=== PATIENT | female | born 1950 | race Caucasian/White ===

== ENCOUNTER → 2016-06-22 | Outpatient (CLI) | payer OTHER ==
[~2016-06-22] MED LIST: ADAL40KI SQ; AMLO5TAB2 GT; ASP325TEC PO; ASPI-892 PO; ATOR40TA70 PO; ATOR80TA PO; CANA300T PO; CARV12.5 GT; CETI10TA17 PO; CHOL2000 PO; DICL75TA2; DIPH25TA82 PO; EZET10TA23 PO; FURO20TA4 PO; GMFB600T PO; LISI1TAB PO; LISI40TA PO; LSNP20T; MAGN250T7 PO; MELO-195 PO; METF-380 PO; METF500T61 PO; METH10TA40 PO; MULT-608 PO; NEBI2.5T5; NF-LOVAZAC PO; OMEG-11 PO; OMEP20CA6 PO; PNT40TEC PO; POTA10TA36; PRAS10TA6 PO; SENN1TAB66 PO; ZLP10T PO; ZOLP5TAB6 PO; ZOLP6.252; iron PO
--- OUTSIDE RECORDS SUMMARY | 2016-06-22 11:46 | XMS REPORT | Continuity of Care Document ---
Author Author [facility] Organization [facility] Address Unknown Phone Unavailable Care Team Providers Care Power Station Operator Name Role Phone LEANNE BAUTISTA DO PCP Insurance Providers Payer Name Policy Number Subscriber Name Relationship [employer] [id number] Jolene Gutierrez 20 Self / Same As Patient Advance Directives Directive Response Recorded Date/Time Advance Directives No 11/01/14 9:50am Health Care Power of Patent Prosecution Attorney No 11/01/14 9:50am Organ Donor Yes 11/01/14 9:50am Resuscitation Status Full Code 11/01/14 9:50am Problems No known problems or medical conditions. Medications Medication Dose Route Sig Days/Qty Instructions Order Date Discontinued Date Status Zolpidem Tartrate 10/12/08 08/04/10 Discontinued Aspirin 81 Mg PO DAILY 10/12/08 08/05/10 Discontinued Diphenhydramine HCl (Benadryl) 50 Mg PO TWICE A DAY 10/12/08 Discontinued Furosemide (Lasix) 20 Mg PO DAILY 10/12/08 Active Lisinopril 10/12/08 08/04/10 Discontinued Gemfibrozil 600 Mg PO TWICE A DAY 10/12/08 08/05/10 Discontinued Omeprazole 20 Mg PO TWICE A DAY 10/12/08 08/05/10 Discontinued Methotrexate Sodium 20 Mg PO weekly 10/12/08 11/01/14 Discontinued Cholecalciferol 2,000 Unit PO TWICE A DAY 08/04/10 Active [iron] 65 Mg PO TWICE A DAY 08/04/10 08/05/10 Discontinued Sennosides/Docusate Sodium 1 Tab PO TWICE A DAY 08/04/10 11/01/14 Discontinued Multivitamins 1 Tab PO DAILY 08/04/10 Active Zolpidem Tartrate 10 Mg PO BEDTIME 08/04/10 11/01/14 Discontinued Aspirin 325 Mg PO DAILY 08/05/10 Active Pantoprazole Sodium 1 Tab PO DAILY 30 Qty 08/05/10 Active Atorvastatin Calcium 40 Mg PO DAILY 11/01/14 Active Lisinopril 40 Mg PO DAILY 11/01/14 Active Metformin HCl (Glucophage) 1 Each PO TWICE A DAY WITH MEALS 11/01/14 Active [place]-3S/Dha/Epa/Fish Oil 1 Each PO FOUR TIMES DAILY 11/01/14 Active Zolpidem Tartrate 5 Mg PO BEDTIME 11/01/14 Active Cetirizine HCl (Zyrtec) 10 Mg PO DAILY 11/01/14 Active Ezetimibe 10 Mg PO DAILY 11/01/14 11/01/14 Discontinued Magnesium Oxide 250 Mg PO DAILY 11/01/14 Active Amlodipine Besylate 5 Mg GT DAILY 11/01/14 Active Canagliflozin 300 Mg PO DAILY 11/01/14 Active Carvedilol 12.5 Mg GT TWICE A DAY 11/01/14 Active Ezetimibe 10 Mg PO DAILY 11/01/14 Active Adalimumab 40 Mg SQ QOW PT TAKES EVERY OTHER WEEK 11/01/14 Active Social History Social History Problem Response Recorded Date/Time Alcohol Use Denies Use 08/31/2012 9:30am Recreational Drug Use No 08/31/2012 9:30am Recent Foreign Travel No 11/01/2014 9:35am Smoking Status Never a Smoker 11/01/2014 9:30am Do you dip or chew tobacco? No 11/01/2014 9:30am Query Response Start Date Stop Date Smoking Status Never a Smoker Hospital Discharge Instructions No hospital discharge instructions. Plan of Care No plan of care. Functional Status No functional status results. Allergies, Adverse Reactions, Alerts Allergen Type Severity Reaction Status Last Updated Niacin Allergy Unknown Active 07/31/08 Immunizations Name Given Type Date of Pneumonia Vaccine 05/11/12 Historical Tetanus Booster (TDap) More than 5yrs Historical Vital Signs Acute Vital Signs Vital Response Date/Time Temperature (Fahrenheit) 97.3 degrees F (97.6 - 99.5) Temperature (Calculated Celsius) 36.93950 degrees C (36.4 - 37.5) Temperature Source Tympanic Pulse Rate (adult) 53 bpm (60 - 90) Respiratory Rate 20 bpm (12 - 24) O2 Sat by Pulse Oximetry 98 % (88 - 100) Blood Pressure 110/60 mm Hg Pain Pain Intensity 0 Height (Feet) 5 feet Height (Inches) 4.00 inches Height (Calculated Centimeters) 162.624445 cm Weight (Pounds) 204 pounds Weight (Calculated Grams) 15614.844 gm Weight (Calculated Kilograms) 92.897487 kilograms Calculated BMI 35.01 Results Laboratory Results Test Name Result Units Flags Reference Collection Date/Time Result Date/ Time Comments Glucometer 105 MG/DL 70-110 11/01/2014 11:13am 11/01/2014 11:19am Procedures Procedure Status Date Provider(s) Diagnostic colonoscopy completed 11/01/14 MALLORY JONES MD Encounters Encounter Location Date/Time Registered [facility] 11/01/14 9:19am Registered Clinic [facility] 10/31/14 6:15am
[2016-06-22 12:11] LABS: BASOPHILS # (AUTO) 0.1 10^3/uL (0.0-0.1); BASOPHILS % (AUTO) 1 % (0-10); EOSINOPHILS # (AUTO) 0.1 10^3/uL (0.0-0.3); EOSINOPHILS % (AUTO) 1 % (0-10); LYMPHOCYTES # (AUTO) 2.2 X 10^3 (1.0-4.0); LYMPHOCYTES % (AUTO) 30 % (12-44); MEAN CORPUSCULAR HEMOGLOBIN 28 PG (25-34); MEAN CORPUSCULAR HGB CONC 33 G/DL (32-36); MEAN CORPUSCULAR VOLUME 85 FL (80-99); MEAN PLATELET VOLUME 10.2 FL (7.4-10.4); MONOCYTES # (AUTO) 0.8 X 10^3 (0.0-1.0); MONOCYTES % (AUTO) 11 % (0-12); NEUTROPHILS # (AUTO) 4.1 X 10^3 (1.8-7.8); NEUTROPHILS % (AUTO) 57 % (42-75); PLATELET COUNT 182 10^3/uL (130-400); RED BLOOD COUNT 4.65 10^6/uL (4.35-5.85); WHITE BLOOD COUNT 7.3 10^3/uL (4.3-11.0)
--- NOTE | 2016-06-22 12:14 | Diagnostic Imaging Report ---
Three views of the right foot. INDICATION: Pain and swelling. FINDINGS: There is mild osteophyte formation at the first metatarsophalangeal joint with subchondral sclerosis. Mild degenerative changes in the DIP and to lesser extent in the PIP joints seen. There is no fracture or dislocation identified. Joint alignment is satisfactory. IMPRESSION: Degenerative changes at the first MTP and at the interphalangeal joint seen. Dictated by: Dictated on workstation # [id number]
[2016-06-22 15:02] LABS: ERYTHROCYTE SEDIMENTATION RATE 33 MM/HR (0-30)
== END ==
LOC: RAD 11:41
PROVIDERS: ATTEND Nurse Practitioner
DX: M79.671 Pain in right foot (principal)
CPT/HCPCS: 36415; 73630; 84550; 85025; 85652

== ENCOUNTER → 2017-04-06 | Outpatient (CLI) | payer OTHER ==
--- NOTE | 2017-04-08 08:03 | Diagnostic Imaging Report ---
Bilateral screening mammogram 2D views with tomosynthesis. The current study was also evaluated with a Computer Aided Detection (CAD) system. INDICATION: Screening. No current complaints stated on the questionnaire. COMPARISON: 11/18/2015. FINDINGS: The breasts are composed of scattered fibroglandular densities. There are punctate calcifications with minimal heterogeneity seen in the inferior aspect of the right breast in a segmental distribution that demonstrate minimal increase from prior exams. The left breast demonstrates no significant change. IMPRESSION: Segmental distribution of punctate calcifications that demonstrate minimal increase from prior exam is seen. Etiology is indeterminate. Further evaluation with focal compression magnification views and ultrasound of the right breast is recommended to ensure no suspicious findings. ACR BI-RADS Category 0: Incomplete. (Needs additional imaging evaluation). Result letter will be mailed to the patient. Note: At least 10% of breast cancer is not imaged by mammography. Dictated by: Dictated on workstation # [id number]
== END ==
LOC: RAD 09:49
PROVIDERS: ATTEND Family Medicine
DX: Z12.31 Encounter for screening mammogram for malignant neoplasm of breast (principal)
CPT/HCPCS: 77067

== ENCOUNTER → 2017-04-18 | Outpatient (CLI) | payer OTHER ==
--- NOTE | 2017-04-18 14:58 | Diagnostic Imaging Report ---
EXAMINATION: Right breast ultrasound. INDICATION: Right breast calcifications inferiorly. FINDINGS: The four-quadrants and retroareolar region of the right breast were scanned with no underlying abnormal tissue. IMPRESSION: Negative study. The calcifications demonstrate no significant heterogeneity or particular suspicious morphology. The distribution of the calcifications is segmental, however. Further evaluation with a breast MRI is suggested. If this cannot be performed, then a 6 month followup mammogram is recommended. ACR BI-RADS Category 3: Probably benign findings. Dictated by: Dictated on workstation # [id number]
--- NOTE | 2017-04-18 22:53 | Diagnostic Imaging Report ---
EXAM: Right breast diagnostic mammogram with tomography evaluation. The current study was also evaluated with a Computer Aided Detection (CAD) system. INDICATION: Right breast calcifications. COMPARISON 04/06/2017. FINDINGS: The right breast demonstrates calcifications with minimal heterogeneity in the inferior aspect of the right breast. The morphology is not particularly suspicious however the segmental distribution is somewhat concerning. No definite underlying mass. IMPRESSION: Indeterminate segmental calcifications in the lower aspect of the right breast. Ultrasound evaluation pending. BI-RADS 0. ACR BI-RADS Category 0: Incomplete. (Needs additional imaging evaluation). Result letter will be mailed to the patient. Note: At least 10% of breast cancer is not imaged by mammography. Dictated by: Dictated on workstation # [id number]
== END ==
LOC: RAD 13:35
PROVIDERS: ATTEND Family Medicine
DX: R92.1 Mammographic calcification found on diagnostic imaging of breast (principal)
CPT/HCPCS: 76641

== ENCOUNTER → 2017-06-27 | Outpatient (CLI) | payer BC, OTHER | LOC: CARD 09:47 | PROVIDERS: ATTEND Physician Assistant | DX: I25.10 Atherosclerotic heart disease of native coronary artery without angina pectoris (principal); I65.23 Occlusion and stenosis of bilateral carotid arteries; I10 Essential (primary) hypertension; E78.2 Mixed hyperlipidemia | CPT/HCPCS: 93306 ==

== ENCOUNTER → 2017-07-04 | Outpatient (CLI) | payer BC, OTHER ==
[~2017-07-04] MED LIST changes: +CATHETER FLUSH 10 ML SYR IV PRN; +REGADENOSON 0.4 MG/5 ML SYR (LEXISCAN) IV ONE
[2017-07-04 09:26] VITALS: BP 221/102
--- NOTE | 2017-07-05 00:17 | STRESS TEST ---
DATE OF SERVICE: 07/04/2017 REFERRING PHYSICIAN: Dr. Beltran. Baseline heart rate is 72. Baseline blood pressure is 220/100. Baseline EKG is sinus rhythm with no ischemic changes. SUMMARY: The patient received 10.91 mCi of technetium-99 Myoview and the resting images were obtained and the patient received 0.4 mg of Lexiscan followed by 31.3 mCi of technetium-99 Myoview. Throughout the test, there were no EKG changes. The resting and stress images were reviewed and compared in the short axis, horizontal long axis and vertical long axis views. Review of the images showed typical female pattern with no significant ischemia or infarction. SSS is 3, SDS 3, TID value 1.01. On the gated images, the left ventricle appeared to be normal size with normal contractility. Calculated ejection fraction is 62%. CONCLUSION: 1. The patient tolerated Lexiscan well. 2. Baseline hypertension persisted throughout test. 3. Typical female pattern with no significant ischemia or infarction on SPECT images. 4. Normal left ventricular size with normal contractility, calculated ejection fraction 62%. Job ID: [id number] DocumentID: [id number] Dictated Date: 07/04/2017 18:29:12 Bedspread Folder Date: 07/05/2017 00:16:54 Dictated By: WILIAN BANKS MD
== END ==
LOC: RAD 08:04
PROVIDERS: ATTEND Physician Assistant
DX: I25.10 Atherosclerotic heart disease of native coronary artery without angina pectoris (principal); I65.23 Occlusion and stenosis of bilateral carotid arteries; I10 Essential (primary) hypertension; E78.2 Mixed hyperlipidemia
CPT/HCPCS: 78452; 93017

== ENCOUNTER → 2017-10-26 | Outpatient (CLI) | payer BC ==
[~2017-10-26] MED LIST changes: -CATHETER FLUSH 10 ML SYR IV PRN; -REGADENOSON 0.4 MG/5 ML SYR (LEXISCAN) IV ONE
--- NOTE | 2017-10-26 22:09 | Diagnostic Imaging Report ---
INDICATION: Followup mammogram. At this time there are no current complaints. EXAMINATION: Right breast digital diagnostic mammogram with CAD. The current study was also evaluated with a Computer Aided Detection (CAD) system. COMPARISON: This study was compared to the prior exams of 04/06/2017, 11/18/2015 and 09/25/2013. FINDINGS: The previous mammogram of 04/18/2017 noted calcifications scattered throughout the right breast. On this exam, the calcifications are again evident and do not seem to have changed adversely. There is also some architectural distortion in the right breast. By history, the patient did undergo a breast biopsy in 1987. The architectural distortion also seems similar to the prior exam. There are scattered fibroglandular densities in the right breast which could obscure a lesion. When compared to the previous study, however, there does not appear to have been any adverse change. There is no primary or secondary sign of malignancy noted. IMPRESSION: 1. The calcifications in the right breast, seen previously, appear stable. Most likely they are benign. 2. I would recommend that patient have a diagnostic mammogram of the right breast in six months for continued evaluation. She could also have her annual screening mammogram of the left breast at the same time. ACR BI-RADS Category 3: Probably benign findings. Result letter will be mailed to the patient. Note: At least 10% of breast cancer is not imaged by mammography. Dictated by: Dictated on workstation # [id number]
== END ==
LOC: RAD 07:58
PROVIDERS: ATTEND Family Medicine
DX: R92.1 Mammographic calcification found on diagnostic imaging of breast (principal)

== ENCOUNTER 2018-02-16 14:58 | Outpatient (RCR) | payer BC | END 2018-02-19 | disposition home or self-care (01) | PROVIDERS: ATTEND Family Medicine | DX: M47.812 Spondylosis without myelopathy or radiculopathy, cervical region (principal); M25.511 Pain in right shoulder ==

== ENCOUNTER → 2018-03-04 | Outpatient (CLI) | payer BC ==
--- NOTE | 2018-03-04 11:22 | Diagnostic Imaging Report ---
PROCEDURE: MR imaging cervical spine without contrast. TECHNIQUE: Multiplanar, multisequence MR imaging of the cervical spine was performed without contrast. INDICATION: Neck pain, radiculopathy COMPARISON: None. FINDINGS: Alignment of the cervical column is normal. There is no subluxation or fracture. The marrow signal is normal throughout. The course and caliber of the cervical cord is grossly normal. There is no mass. C2-C3, C3-C4: There is disc space narrowing with facet joint hypertrophy. However, no foraminal or central canal stenosis is seen. C4-C5: Disc space narrowing with facet joint hypertrophy is seen. There is moderate left foraminal stenosis, mild right foraminal stenosis. No central canal stenosis is seen. C5-C6: Moderate osteophyte disc complex with facet joint hypertrophy is seen. There is severe left foraminal, moderate right foraminal stenosis. There is moderate central canal stenosis. C6-C7, C7-T1: There is some disc space narrowing with facet joint hypertrophy. However, no foraminal or central canal stenosis is seen. IMPRESSION: 1. Multilevel degenerative changes most pronounced at C5-C6 as described above. 2. Normal cord signal. Dictated by: Dictated on workstation # [id number]
== END ==
LOC: RAD 09:49
PROVIDERS: ATTEND Family Medicine
DX: M48.02 Spinal stenosis, cervical region (principal); M47.22 Other spondylosis with radiculopathy, cervical region; M50.13 Cervical disc disorder with radiculopathy, cervicothoracic region; M99.71 Connective tissue and disc stenosis of intervertebral foramina of cervical region; M25.78 Osteophyte, vertebrae
CPT/HCPCS: 72141

== ENCOUNTER 2018-04-20 15:29 | Outpatient (RCR) | payer BC | END 2018-04-20 16:08 | disposition home or self-care (01) | PROVIDERS: ATTEND Family Medicine | DX: M47.812 Spondylosis without myelopathy or radiculopathy, cervical region (principal); M25.511 Pain in right shoulder ==

== ENCOUNTER → 2018-04-27 | Outpatient (CLI) | payer BC ==
--- NOTE | 2018-04-27 21:37 | Diagnostic Imaging Report ---
INDICATION: Right breast calcifications. Patient presents for follow-up. Comparison is made with prior mammograms from 10/26/2017, 04/18/2017, and 04/06/2017. 2-D and 3-D bilateral diagnostic mammography was performed with computer-aided detection (CAD) system. FINDINGS: Scattered fibronodular densities are identified bilaterally. Calcifications in the right breast appear stable and appear benign. No new mass or malignant-appearing microcalcifications are seen. The axillae are unremarkable. IMPRESSION: Stable bilateral mammograms. No mammographic features suspicious for malignancy are identified. Patient may return to routine annual screening mammography. ACR BI-RADS Category 2: Benign findings. Result letter will be mailed to the patient. Note: At least 10% of breast cancer is not imaged by mammography. Dictated by: Dictated on workstation # [id number]
== END ==
LOC: RAD 09:08
PROVIDERS: ATTEND Family Medicine
DX: R92.1 Mammographic calcification found on diagnostic imaging of breast (principal)
CPT/HCPCS: 77066

== ENCOUNTER 2018-07-18 15:37 | Outpatient (RCR) | payer BC | END 2018-07-18 16:16 | disposition home or self-care (01) | PROVIDERS: ATTEND Pain Medicine Interventional Pain Medicine | DX: M46.1 Sacroiliitis, not elsewhere classified (principal) ==

== ENCOUNTER → 2018-09-06 | Outpatient (CLI) | payer BC ==
[2018-09-06 12:30] LABS: CREATINE KINASE MB 1.5 NG/ML (<6.6)
== END ==
LOC: LABNPT 12:06
PROVIDERS: ATTEND Nurse Practitioner Family
DX: R00.2 Palpitations (principal); I10 Essential (primary) hypertension; Z95.1 Presence of aortocoronary bypass graft
CPT/HCPCS: 82553; 83874; 84484

== ENCOUNTER → 2019-01-09 | Outpatient (CLI) | payer BC ==
--- NOTE | 2019-01-09 09:51 | Diagnostic Imaging Report ---
INDICATION: Hemoptysis PA and lateral chest obtained at 932 hours am. Comparison is made to 08/04/2010 Patient has had previous sternotomy. The heart is top limits of normal in size. Mediastinal silhouette is otherwise unremarkable. The right lung appears clear. There are some linear scarring in the left lung base which is new compared to 08/04/2010. There is no pneumothorax or pleural fluid. IMPRESSION: Poststernotomy changes with borderline heart size. There appears to be some linear scarring in the left lateral base. If hemoptysis continues, consider a CT study. Dictated by: Dictated on workstation # [id number]
== END ==
LOC: RAD 09:15
PROVIDERS: ATTEND Nurse Practitioner Family
DX: R04.2 Hemoptysis (principal); Z98.890 Other specified postprocedural states
CPT/HCPCS: 71046

== ENCOUNTER → 2019-01-15 | Outpatient (CLI) | payer BC ==
[~2019-01-15] MED LIST changes: +CATHETER FLUSH 10 ML SYR IV PRN; +HOLD METFORMIN - RECEIVED CONTRAST 20 ML VIAL IV SCH; +IOHEXOL 350 MG/ML 100 ML (OMNIPAQUE 350) VIAL IV ONE; +NS 100 ML (IVPB) BAG IV ONE
--- NOTE | 2019-01-15 12:44 | Diagnostic Imaging Report ---
PROCEDURE: CT chest with contrast only. TECHNIQUE: Multiple contiguous axial images were obtained through the chest after administration of intravenous contrast. Auto Exposure Controls were utilized during the CT exam to meet ALARA standards for radiation dose reduction. INDICATION: Tobacco use and hemoptysis. COMPARISON: No prior examinations are available for comparison. FINDINGS: The heart size is normal. There are coronary artery calcifications. There is some focal scarring or atelectasis in left lung base. There is a loculated collection of air within the pleural space posterior laterally. There is no discrete pneumothorax. There is no pathologically enlarged adenopathy in the chest. The visualized intra-abdominal structures are unremarkable. There is a small hiatal hernia. There are mild degenerative changes in the spine. There has been a previous median sternotomy and coronary bypass graft. IMPRESSION: 1. Focal scarring or atelectasis in the left lung base with a loculated collection of air along the posterior lateral aspect of the lung base. These findings are nonspecific however may reflect chronic sequela of chest tube placement. Recommend clinical correlation. 2. Coronary artery calcification with previous coronary artery bypass graft. 3. No other acute abnormality in the chest. Dictated by: Dictated on workstation # [id number]
== END ==
LOC: RAD 08:49
PROVIDERS: ATTEND Family Medicine
DX: I25.810 Atherosclerosis of coronary artery bypass graft(s) without angina pectoris (principal); F17.210 Nicotine dependence, cigarettes, uncomplicated; R04.2 Hemoptysis
CPT/HCPCS: 71260

== ENCOUNTER → 2019-02-05 | Outpatient (CLI) | payer BC ==
[~2019-02-05] VITALS: Ht 162 cm; Wt 85.0 kg
[~2019-02-05] MED LIST changes: -HOLD METFORMIN - RECEIVED CONTRAST 20 ML VIAL IV SCH; -IOHEXOL 350 MG/ML 100 ML (OMNIPAQUE 350) VIAL IV ONE; -NS 100 ML (IVPB) BAG IV ONE; +REGADENOSON 0.4 MG/5 ML SYR (LEXISCAN) IV ONE
[2019-02-05 09:40] VITALS: BP 218/110
[2019-02-05 09:41] VITALS: BP 176/96
--- NOTE | 2019-02-06 09:09 | STRESS TEST ---
DATE OF SERVICE: 02/05/2019 LEXISCAN MYOVIEW STRESS TEST REPORT REFERRING PHYSICIAN Any Beltran DO Baseline heart rate is 72. Baseline blood pressure 218/110. Baseline EKG is sinus rhythm with no ischemic changes. In summary, the patient was injected with 10.43 mCi of technetium-99 Myoview and the resting images were obtained. Then, she received 0.4 mg of Lexiscan followed by 30.2 mCi of technetium-99 Myoview. Throughout the test, there were no EKG changes. The resting and stress images were reviewed and compared in the short axis, horizontal long axis, and vertical long axis views. Review of the images showed breast attenuation with mild decreased uptake at the apex with subtle reversibility. SSS is 3, SDS 3, TID value 1.05. On the gated images, the left ventricle appeared to be normal size with normal contractility. Calculated ejection fraction 63%. No significant ischemia was noted. CONCLUSION: 1. The patient tolerated Lexiscan well. 2. Baseline hypertension with blood pressure 218/110, persisted during test. 3. Breast attenuation with typical female pattern with no significant ischemia or infarction on SPECT images. 4. Normal left ventricular size with normal contractility. Calculated ejection fraction is 63%. Job ID: [id number] DocumentID: [id number] Dictated Date: 02/06/2019 07:41:09 Drill Press Set Up Operator Date: 02/06/2019 09:08:08 Dictated By: WILIAN BANKS MD
== END ==
LOC: CARD 08:02
PROVIDERS: ATTEND Physician Assistant
DX: I25.10 Atherosclerotic heart disease of native coronary artery without angina pectoris (principal); I65.29 Occlusion and stenosis of unspecified carotid artery; E11.9 Type 2 diabetes mellitus without complications; I10 Essential (primary) hypertension; E78.2 Mixed hyperlipidemia
CPT/HCPCS: 78452; 93017

== ENCOUNTER → 2019-05-09 | Outpatient (CLI) | payer BC ==
[~2019-05-09] MED LIST changes: -CATHETER FLUSH 10 ML SYR IV PRN; -REGADENOSON 0.4 MG/5 ML SYR (LEXISCAN) IV ONE
--- NOTE | 2019-05-09 09:08 | Diagnostic Imaging Report ---
INDICATION: Routine screening. COMPARISON: 04/27/2018 and 04/06/2017. TECHNIQUE: 2D and 3D bilateral screening mammography was performed with CAD. FINDINGS: Both breasts remain heterogeneously dense, limiting the sensitivity of mammography. The previously noted benign calcifications in the right breast appear stable. No new mass or malignant appearing microcalcifications are seen. The axillae are unremarkable. IMPRESSION: No mammographic features suspicious for malignancy are identified. ACR BI-RADS Category 2: Benign findings. Result letter will be mailed to the patient. Note: At least 10% of breast cancer is not imaged by mammography. Dictated by: Dictated on workstation # [id number]
== END ==
LOC: RAD 07:28
PROVIDERS: ATTEND Family Medicine
DX: Z12.31 Encounter for screening mammogram for malignant neoplasm of breast (principal)
CPT/HCPCS: 77067

== ENCOUNTER → 2019-08-03 | Outpatient (CLI) | payer BC ==
--- NOTE | 2019-08-03 17:00 | Diagnostic Imaging Report ---
PROCEDURE: MR imaging cervical spine without contrast. TECHNIQUE: Multiplanar, multisequence MR imaging of the cervical spine was performed without contrast. DATE: August 03, 2019. COMPARISON: MRI cervical spine March 04, 2018. INDICATION: 68-year-old female, cervical radiculopathy. Pain extending to the right upper extremity. FINDINGS: There is mild grade 1 retrolisthesis of C5 on C6. There is no evidence of a diffuse marrow infiltrating or replacing process. There is no identified focal concerning bone lesion. There is arthritis at the C1-C2 articulation. The visualized spinal cord is unremarkable. There is severe disc height loss at C5-C6. Additional disc heights are well preserved. C2-C3: There is no disc bulge. The uncovertebral and facet joints are unremarkable. There is no foraminal narrowing. There is no spinal canal stenosis. C3-C4: There is no disc bulge. The uncovertebral and facet joints are unremarkable. There is no foraminal narrowing. There is no spinal canal stenosis. C4-C5: There is no disc bulge. The uncovertebral and facet joints are unremarkable. There is no foraminal narrowing. There is no spinal canal stenosis. C5-C6: There is a small posterior disc osteophyte complex. There are left greater than right uncovertebral degenerative changes. There is mild/moderate right and moderate to severe left foraminal narrowing. There is no spinal canal stenosis. C6-C7: There is no disc bulge. The uncovertebral and facet joints are unremarkable. There is no foraminal narrowing. There is no spinal canal stenosis. C7-T1: There is no disc bulge. The uncovertebral and facet joints are unremarkable. There is no foraminal narrowing. There is no spinal canal stenosis. IMPRESSION: 1. C5-C6 posterior disc osteophyte complex with left greater than right uncovertebral degenerative changes. There is moderate to severe left and [id number] right foraminal narrowing at this level. Appearance is similar to March 04, 2018 MRI of cervical spine. 2. Mild grade 1 retrolisthesis of C5 on C6. 3. C1-C2 arthritis. Dictated by: Dictated on workstation # [id number]
== END ==
LOC: RAD 15:40
PROVIDERS: ATTEND Nurse Practitioner
DX: M54.12 Radiculopathy, cervical region (principal); M43.12 Spondylolisthesis, cervical region; M47.22 Other spondylosis with radiculopathy, cervical region; M48.02 Spinal stenosis, cervical region
CPT/HCPCS: 72141

== ENCOUNTER 2019-11-22 13:40 | Outpatient (RCR) | payer BC | END 2019-11-22 14:31 | disposition home or self-care (01) | PROVIDERS: ATTEND Nurse Practitioner | DX: M25.811 Other specified joint disorders, right shoulder (principal) ==

== ENCOUNTER → 2020-05-14 | Outpatient (CLI) | payer BC ==
--- NOTE | 2020-05-14 13:59 | Diagnostic Imaging Report ---
INDICATION: Routine screening. COMPARISON: 05/09/2019 and 04/27/2018. TECHNIQUE: 2D and 3D bilateral screening mammography was performed with CAD. FINDINGS: Both breasts remain heterogeneously dense, limiting the sensitivity of mammography. Benign calcifications in the right breast appear stable. No new mass or malignant appearing microcalcifications are seen. The axillae are unremarkable. IMPRESSION: No mammographic features suspicious for malignancy are identified. ACR BI-RADS Category 2: Benign findings. Result letter will be mailed to the patient. Note: At least 10% of breast cancer is not imaged by mammography. Dictated by: Dictated on workstation # [id number]
== END ==
LOC: RAD 07:30
PROVIDERS: ATTEND Family Medicine
DX: Z12.31 Encounter for screening mammogram for malignant neoplasm of breast (principal)
CPT/HCPCS: 77063; 77067

== ENCOUNTER 2020-07-09 05:43 | Outpatient (RCR) | payer MEDICARE ==
[~2020-07-09] VITALS: Ht 162.6 cm; Wt 85.0 kg
[~2020-07-09 05:43] MED LIST changes: +ADAL40PE5 SQ; +ASPI-808 PO; +CARV25TA PO; +DILT240C87 PO; +EZET10TA49 PO; +ICOS1CAP PO; +LEFL20TA18 PO; +LOSA1TAB23 PO; +MULT-567 PO; +PANT40TA52 PO; +PRED2.5T PO; +SITA1TAB6 PO; +TIZA4TAB4 PO
== END 2020-07-09 09:37 | disposition home or self-care (01) ==
LOC: PREOP 05:43
PROVIDERS: ATTEND Specialist
DX: Z01.812 Encounter for preprocedural laboratory examination (principal); Z20.822 Contact with and (suspected) exposure to COVID-19
CPT/HCPCS: 87635

== ENCOUNTER 2020-07-11 09:03 | Day surgery (SDC) | payer MEDICARE, OTHER ==
[~2020-07-11] VITALS: Ht 162.6 cm; Wt 85.0 kg
[2020-07-11 09:15] VITALS: BP 184/94
[2020-07-11] MEDS ORDERED: MOXIFLOXACIN OPHTH SOLN 5 MG/ML 0.3 ML SYRINGE OP ONE (09:15)
[2020-07-11] MEDS ORDERED: POVIDONE (BETADINE) OPHTH SOLN 5% 30 ML OP ONE (09:15)
[2020-07-11] MEDS ORDERED: TIMOLOL MALEATE 0.5% 5 ML (TIMOPTIC) BTL OU PRN (09:15)
[2020-07-11] MEDS ORDERED: LIDOCAINE PF 1% 2 ML VIAL IR PRN (09:15)
[2020-07-11] MEDS ORDERED: MIDAZOLAM 2 MG/2 ML (VERSED) VIAL ONE (09:25)
[2020-07-11] MEDS: TETRACAINE 0.5% OPHTH SOLN 4 ML BTL (SINGLE DOSE ONLY) OU PRN ×4 (09:32→09:50)
[2020-07-11] MEDS: TROPICAMIDE 1% OPH SOLN (MYDRIACYL) 15 ML BTL OP SCH ×3 (09:40→09:50)
[2020-07-11] MEDS: PHENYLEPHRINE 10% OPHTH (NEO-SYN) 5 ML BTL OU SCH ×3 (09:40→09:50)
--- NOTE | 2020-07-11 09:55 | Ophthalmologist Pre-Op Note ---
Pre-Operative Progress Note H&P Reviewed The H&P was reviewed, patient examined and no changes noted. Date H&P Reviewed: Jul 11, 2020 Time H&P Reviewed: 09:54 Pre-Op Dx Cataract, Left Eye COCO RIVEAR MD Jul 11, 2020 09:54
--- NOTE | 2020-07-11 10:27 | Ophthalmology Operative Report ---
Cataract removal/placement IOL PREOPERATIVE DIAGNOSIS: Cataract Left Eye POSTOPERATIVE DIAGNOSIS: Cataract Left Eye PROCEDURE: Cataract removal and placement of posterior chamber implant, left eye SURGEON: Diogo Rivera ANESTHESIA: Topical with sedation COMPLICATIONS: None ESTIMATED BLOOD LOSS: Minimal DESCRIPTION OF PROCEDURE: After proper informed consent was obtained, the patient, a 69 female, was taken to the Operating Room and the left eye was anesthetized with tetracaine. The left eye was then prepped and draped in the usual manner. A wire lid speculum was placed. A paracentesis was made at the left hand position. Preservative free lidocaine was injected into the anterior chamber followed by viscoelastic. A clear corneal incision was made in the temporal position. A capsulorrhexis was preformed and the central nuclear and cortical material were removed. The posterior capsule was polished and an Blade [id number] was placed into the capsular bag. The residual viscoelastic was aspirated and balanced saline solution was injected into the anterior chamber. Moxifloxacin was injected into the anterior chamber. The wound was checked and found to be water tight. The patient tolerated the procedure well without complications. DIOGO RIVERA MD Jul 11, 2020 10:26
[2020-07-11] MEDS ORDERED: acetaZOLAMIDE ER 500 MG CAP (DIAMOX SEQUELS) PO ONE (10:30)
[2020-07-11 10:35] VITALS: BP 158/78
--- NOTE | 2020-07-11 15:28 | Anesthesia-General Post-Op ---
MAC Patient Condition Mental Status/LOC: Same as Preop Cardiovascular: Satisfactory Nausea/Vomiting: Absent Respiratory: Satisfactory Pain: Controlled Complications: Absent Post Op Complications Complications None Follow Up Care/Instructions Patient Instructions None needed. Anesthesiology Discharge Order Discharge Order Patient was seen this morning after the procedure and she was doing well, no complaints, stable vital signs, no apparent adverse anesthesia problems. PRINCE VALLEJO DO Jul 11, 2020 15:28
== END 2020-07-11 10:35 | disposition home or self-care (01) ==
LOC: SDC 09:03
PROVIDERS: ATTEND Specialist
DX: E11.36 Type 2 diabetes mellitus with diabetic cataract (principal); H25.12 Age-related nuclear cataract, left eye; I10 Essential (primary) hypertension; I25.10 Atherosclerotic heart disease of native coronary artery without angina pectoris; E78.00 Pure hypercholesterolemia, unspecified; M19.90 Unspecified osteoarthritis, unspecified site; Z79.899 Other long term (current) drug therapy; Z88.8 Allergy status to other drugs, medicaments and biological substances; Z95.1 Presence of aortocoronary bypass graft; Z87.891 Personal history of nicotine dependence; Z80.7 Family history of other malignant neoplasms of lymphoid, hematopoietic and related tissues
CPT/HCPCS: 66984; 82962; V2632

== ENCOUNTER 2020-07-16 05:38 | Outpatient (RCR) | payer MEDICARE, OTHER | END 2020-07-16 11:24 | disposition home or self-care (01) | LOC: PREOP 05:38 | PROVIDERS: ATTEND Specialist | DX: Z01.812 Encounter for preprocedural laboratory examination (principal); H25.11 Age-related nuclear cataract, right eye; Z20.822 Contact with and (suspected) exposure to COVID-19 | CPT/HCPCS: 87635 ==

== ENCOUNTER 2020-07-18 09:10 | Day surgery (SDC) | payer MEDICARE, OTHER ==
[~2020-07-18] VITALS: Ht 162.6 cm; Wt 90.9 kg
[2020-07-18 09:20] VITALS: BP 175/87
[2020-07-18] MEDS: TETRACAINE 0.5% OPHTH SOLN 4 ML BTL (SINGLE DOSE ONLY) OU PRN ×4 (09:20→09:45)
[2020-07-18] MEDS ORDERED: LIDOCAINE PF 1% 2 ML VIAL IR PRN (09:30)
[2020-07-18] MEDS ORDERED: POVIDONE (BETADINE) OPHTH SOLN 5% 30 ML OP ONE (09:30)
[2020-07-18] MEDS ORDERED: MOXIFLOXACIN OPHTH SOLN 5 MG/ML 0.3 ML SYRINGE OP ONE (09:30)
[2020-07-18] MEDS ORDERED: TIMOLOL MALEATE 0.5% 5 ML (TIMOPTIC) BTL OU PRN (09:30)
[2020-07-18] MEDS: PHENYLEPHRINE 10% OPHTH (NEO-SYN) 5 ML BTL OU SCH ×3 (09:33→09:45)
[2020-07-18] MEDS: TROPICAMIDE 1% OPH SOLN (MYDRIACYL) 15 ML BTL OP SCH ×3 (09:34→09:45)
[2020-07-18] MEDS ORDERED: MIDAZOLAM 2 MG/2 ML (VERSED) VIAL ONE (09:43)
--- NOTE | 2020-07-18 09:52 | Ophthalmologist Pre-Op Note ---
Pre-Operative Progress Note H&P Reviewed The H&P was reviewed, patient examined and no changes noted. Date H&P Reviewed: Jul 18, 2020 Time H&P Reviewed: 09:52 Pre-Op Dx Cataract, Right Eye COCO RIVERA MD Jul 18, 2020 09:52
[2020-07-18 10:21] VITALS: BP 155/78
[2020-07-18] MEDS ORDERED: acetaZOLAMIDE ER 500 MG CAP (DIAMOX SEQUELS) PO ONE (10:30)
--- NOTE | 2020-07-18 13:09 | Anesthesia-General Post-Op ---
MAC Patient Condition Mental Status/LOC: Same as Preop Cardiovascular: Satisfactory Nausea/Vomiting: Absent Respiratory: Satisfactory Pain: Controlled Complications: Absent Post Op Complications Complications None Follow Up Care/Instructions Patient Instructions None needed. Anesthesiology Discharge Order Discharge Order Patient was seen this morning after the procedure and she was doing well, no complaints, stable vital signs, no apparent adverse anesthesia problems. PRINCE VALLEJO DO Jul 18, 2020 13:09
--- NOTE | 2020-08-04 18:18 | OPERATIVE REPORT ---
DATE OF SERVICE: 07/18/2020 PREOPERATIVE DIAGNOSIS: Combined cataract, right eye. POSTOPERATIVE DIAGNOSIS: Combined cataract, right eye. PROCEDURE PERFORMED: Phacoemulsification with posterior chamber intraocular lens. ANESTHESIA: Topical with IV sedation. COMPLICATIONS: None. DESCRIPTION OF PROCEDURE: An informed consent was obtained from the patient and placed on the chart. The eye was dilated and anesthetized and she was taken to the operating room. She was then prepped and draped in the usual sterile fashion. A wire lid speculum was placed. A paracentesis was made at the left hand position. Preservative-free lidocaine was injected into the anterior chamber followed by viscoelastic. A clear corneal incision was then made in the temporal position. A capsulorrhexis was performed and the central nuclear and cortical material were removed. The posterior capsule was polished. The anterior chamber was refilled with viscoelastic and an Blade model AU00T0, power 24.0 diopter lens was placed into the capsular bag. The residual viscoelastic was aspirated. The anterior chamber was filled with balanced salt saline and moxifloxacin was injected. The wounds were checked and found to be watertight. The patient tolerated the procedure well and was taken to the recovery room in a stable condition. Job ID: [id number] DocumentID: [id number] Dictated Date: 08/04/2020 08:48:31 Glass Laminating Operator Date: 08/04/2020 18:17:09 Dictated By: COCO RIVERA MD
== END 2020-07-18 10:21 | disposition home or self-care (01) ==
LOC: SDC 09:10
PROVIDERS: ATTEND Specialist
DX: E11.36 Type 2 diabetes mellitus with diabetic cataract (principal); H25.811 Combined forms of age-related cataract, right eye; I10 Essential (primary) hypertension; I25.10 Atherosclerotic heart disease of native coronary artery without angina pectoris; E78.00 Pure hypercholesterolemia, unspecified; M19.90 Unspecified osteoarthritis, unspecified site; Z79.899 Other long term (current) drug therapy; Z91.048 Other nonmedicinal substance allergy status; Z87.891 Personal history of nicotine dependence; Z90.710 Acquired absence of both cervix and uterus; Z80.7 Family history of other malignant neoplasms of lymphoid, hematopoietic and related tissues
CPT/HCPCS: 66984; 82962; V2632

== ENCOUNTER → 2020-12-24 | Outpatient (CLI) | payer MEDICARE, OTHER ==
--- NOTE | 2020-12-24 11:48 | Diagnostic Imaging Report ---
PROCEDURE: US right lower extremity venous. TECHNIQUE: Multiple real-time grayscale images were obtained over the right lower extremity in various projections. Additional spectral analysis and color Doppler duplex images were also obtained. INDICATION: Right leg pain. There is no evidence of right lower extremity DVT. Right large lower extremity venous system shows normal compressibility with normal response to augmentation and Valsalva. No fluid collection or mass is detected. IMPRESSION: No evidence of right lower extremity DVT. Dictated by: Dictated on workstation # [id number]
== END ==
LOC: RAD 10:42
PROVIDERS: ATTEND Nurse Practitioner Family
DX: M79.661 Pain in right lower leg (principal)

== ENCOUNTER → 2021-05-06 | Outpatient (CLI) | payer MEDICARE, OTHER ==
[~2021-05-06] MED LIST changes: +CATHETER FLUSH 10 ML SYR IV PRN; +REGADENOSON 0.4 MG/5 ML SYR (LEXISCAN) IV ONE; +TIZA-186 PO; -TIZA4TAB4 PO
[2021-05-06 09:12] VITALS: BP 223/104
--- NOTE | 2021-05-06 11:09 | Cardiology Stress Test Report ---
Stress Test Report Date of Procedure/Referring: Date of Procedure: May 06, 2021 Sallie Recio Admitting Physician Any Beltran DO Indications: CAD Baseline Heart Rate: 68 Baseline Blood Pressure: Blood Pressure Systolic: 223 Blood Pressure Diastolic: 104 Baseline Vitals Vital Signs Date Time Temp Pulse Resp B/P (MAP) Pulse Ox O2 Delivery O2 Flow Rate FiO2 05/06/21 09:12 68 223/104 (143) Baseline EKG: Baseline EKG: NSR Summary After explaining the procedure to the patient, she signed a consent and then brought to the stress nuclear laboratory. Patient received 0.4 mg Lexiscan for stress test, ECG, heart rate and blood pressure were monitored continuously. Resting and stress dose of radio tracer were injected, imaging was acquired and reviewed in short axis, horizontal long axis and vertical long axis views. TID: 0.96 SSS: 1 SDS: 1 EF: 71 1. Patient tolerated Lexiscan well 2. Baseline hypertension persisted during test 3. No significant ischemia or infarction on SPECT images 4. Normal left ventricular size, EF 71% WILIAN BANKS MD May 06, 2021 11:09
== END ==
LOC: CARD 07:30
PROVIDERS: ATTEND Physician Assistant
DX: I25.10 Atherosclerotic heart disease of native coronary artery without angina pectoris (principal)
CPT/HCPCS: 78452; 93017; A9502

== ENCOUNTER → 2021-05-19 | Outpatient (CLI) | payer MEDICARE, OTHER ==
[~2021-05-19] MED LIST changes: -CATHETER FLUSH 10 ML SYR IV PRN; -REGADENOSON 0.4 MG/5 ML SYR (LEXISCAN) IV ONE
--- NOTE | 2021-05-19 12:40 | Diagnostic Imaging Report ---
INDICATION: Routine screening. COMPARISON: 05/14/2020 and 05/09/2019. TECHNIQUE: 2D and 3D bilateral screening mammography was performed with CAD. FINDINGS: Both breasts are heterogeneously dense, limiting the sensitivity of mammography. The parenchymal pattern is stable. Benign calcifications in the right breast are stable. No new mass or malignant-appearing microcalcifications are seen. The axillae are unremarkable. IMPRESSION: No mammographic features suspicious for malignancy are identified. ACR BI-RADS Category 2: Benign findings. Result letter will be mailed to the patient. Note: At least 10% of breast cancer is not imaged by mammography. Dictated by: Dictated on workstation # [id number]
== END ==
LOC: RAD 08:15
PROVIDERS: ATTEND Family Medicine
DX: Z12.31 Encounter for screening mammogram for malignant neoplasm of breast (principal)
CPT/HCPCS: 77063; 77067

== ENCOUNTER → 2021-09-30 | Outpatient (CLI) | payer MEDICARE, OTHER | LOC: CARD 14:30 | PROVIDERS: ATTEND Physician Assistant | DX: I11.9 Hypertensive heart disease without heart failure (principal); I25.10 Atherosclerotic heart disease of native coronary artery without angina pectoris | CPT/HCPCS: 93306 ==

== ENCOUNTER → 2021-10-20 | Outpatient (CLI) | payer MEDICARE, OTHER ==
--- NOTE | 2021-10-20 17:02 | Diagnostic Imaging Report ---
INDICATION: Postmenopausal screening for osteoporosis COMPARISON: None FINDINGS: AP Spine L1-L4: [BMD (g/cm2): 1.198] [T-Score: 0.0] [Z-Score: 0.9] [BMD Previous: na] [BMD % Change: na] LT Hip Neck: [BMD (g/cm2): 0.829] [T-Score: -1.5] [Z-Score: -0.4] LT Hip Total: [BMD (g/cm2):1.006] [T-Score:0.0] [Z-Score: 0.8] [BMD Previous: na] [BMD % Change: na] RT Hip Neck: [BMD (g/cm2):0.895] [T-Score:-1.0] [Z-Score:0.1] RT Hip Total: [BMD (g/cm2):1.030] [T-score:0.2] [Z-Score:1.0] [BMD Previous:na] [BMD % Change:na] *Indicates significant change from prior examination based on 95% confidence level. World Health Organization criteria for BMD interpretation classify patients as Normal (T-score at or above -1.0), Osteopenic (T-score between -1.0 and -2.5) or Osteoporotic (T-score at or below -2.5). LIMITATIONS AND MODIFICATION: None. FRACTURE RISK (FRAX SCORE): The ten year probability of (%): Major Osteoporotic Fracture: [18.7] Hip Fracture: [2.6] IMPRESSION: 1. Normal bone mineral density. 2. Baseline examination. 3. See below National Osteoporosis Foundation guidelines on when to potentially initiate pharmacologic therapy. Based on the National Osteoporosis Foundation Guidelines, pharmacologic treatment should be initiated in any of the following, unless clinical conditions suggest otherwise: * Any patient with prior fragility fracture of the hip or vertebrae. A spine fracture indicates 5X risk for subsequent spine fracture and 2X risk for subsequent hip fracture. * Osteoporosis (T-score <-2.5). * Postmenopausal women and men age 50 and older with low bone mass/osteopenia (T-score between -1.0 and -2.5) by DXA and 10-year major osteoporotic fracture greater than 20% or a 10-year probability of hip fracture greater than 3%. These fracture risks are supplied above in the FRAX score, if applicable. * Clinician judgement and/or patient preferences may indicate treatment for people with 10-year fracture probabilities above or below these levels. Dictated by: Dictated on workstation # [id number]
== END ==
LOC: RAD 13:00
PROVIDERS: ATTEND Family Medicine
DX: Z13.820 Encounter for screening for osteoporosis (principal); Z78.0 Asymptomatic menopausal state
CPT/HCPCS: 77080

== ENCOUNTER → 2022-03-03 | Outpatient (CLI) | payer MEDICARE, OTHER ==
--- NOTE | 2022-03-03 08:53 | Diagnostic Imaging Report ---
PROCEDURE: US Gallbladder. TECHNIQUE: Multiple real-time grayscale images were obtained over the right upper quadrant in various projections. INDICATION: Right upper quadrant pain. The liver is enlarged at 19 cm. The liver does show some increased echogenicity consistent with hepatic steatosis. No discrete liver mass is detected. Gallbladder is without stones or sludge. There is no wall thickening or biliary duct dilatation. Pancreas is unremarkable. Aorta is nonaneurysmal. IVC is patent. Right kidney is without calculi or hydronephrosis. There is no ascites. IMPRESSION: 1. Hepatomegaly and hepatic steatosis. 2. No evidence of cholelithiasis or acute cholecystitis. Dictated by: Dictated on workstation # [id number]
== END ==
LOC: RAD 07:47
PROVIDERS: ATTEND Family Medicine
DX: K76.0 Fatty (change of) liver, not elsewhere classified (principal)
CPT/HCPCS: 76705

== ENCOUNTER → 2022-03-15 | Outpatient (CLI) | payer MEDICARE, OTHER ==
[~2022-03-15] MED LIST changes: +CATHETER FLUSH 10 ML SYR IVP PRN
--- NOTE | 2022-03-15 14:42 | Diagnostic Imaging Report ---
INDICATION: Right upper quadrant pain. TECHNIQUE: Patient was administered 5.5 mCi technetium-99m Choletec intravenously, and imaging over the abdomen was performed. At 45 minutes, patient ingested Ensure, and a gallbladder ejection fraction was calculated. FINDINGS: There is homogeneous uptake of activity by the liver with prompt excretion of activity into the gallbladder and common duct. There is normal passage of activity into the small bowel. Gallbladder ejection fraction is 78%. IMPRESSION: Normal HIDA scan and gallbladder ejection fraction. Dictated by: Dictated on workstation # [id number]
== END ==
LOC: CARD 12:45
PROVIDERS: ATTEND Family Medicine
DX: R10.11 Right upper quadrant pain (principal)
CPT/HCPCS: 78227; A9537

== ENCOUNTER → 2022-05-20 | Outpatient (CLI) | payer MEDICARE, OTHER ==
[~2022-05-20] MED LIST changes: -CATHETER FLUSH 10 ML SYR IVP PRN
--- NOTE | 2022-05-20 14:44 | Diagnostic Imaging Report ---
INDICATION: Routine screening. Comparison is made with prior mammogram from 05/19/2021 and 05/14/2020. 2-D and 3-D bilateral screening mammography was performed with CAD. CAD is utilized. The current study was also evaluated with a Computer Aided Detection (CAD) system. Both breasts are heterogeneously dense, limiting the sensitivity of mammography. The parenchymal pattern is stable. No mass or malignant-appearing microcalcifications are seen. There are benign calcifications on the right. Axillae are unremarkable. IMPRESSION: BI-RADS Category 2 No mammographic features suspicious for malignancy are identified. ACR BI-RADS Category 2: Benign findings. Result letter will be mailed to the patient. Note: At least 10% of breast cancer is not imaged by mammography. Dictated by: Dictated on workstation # [id number]
== END ==
LOC: RAD 11:00
PROVIDERS: ATTEND Family Medicine
DX: Z12.31 Encounter for screening mammogram for malignant neoplasm of breast (principal)
CPT/HCPCS: 77063; 77067

== ENCOUNTER → 2022-06-23 | Outpatient (CLI) | payer MEDICARE, OTHER ==
--- NOTE | 2022-06-23 15:49 | Diagnostic Imaging Report ---
INDICATION: Chronic sinusitis. TECHNIQUE: Multiple contiguous axial images were obtained through the sinuses without the use of intravenous contrast. Coronal and sagittal reformations were then performed. Auto Exposure Controls were utilized during the CT exam to meet ALARA standards for radiation dose reduction. COMPARISON: There is no prior study for comparison. FINDINGS: The frontal sinuses are clear. There is opacification of the posterior left ethmoid air cells. Right ethmoid air cells are clear. There is complete opacification of the left sphenoid sinus and near-complete opacification of the right sphenoid sinus. The maxillary sinuses are clear. There is mild deviation of the nasal septum toward the left. Ostiomeatal complexes appear intact. There is no bony destruction. Orbital contents appear unremarkable. IMPRESSION: Complete opacification of left sphenoid sinus, with near-complete opacification of the right sphenoid sinus. There is opacification of the posterior ethmoid air cells on the left side. Remaining sinuses appear essentially clear. Dictated by: Dictated on workstation # [id number]
== END ==
LOC: RAD 11:31
PROVIDERS: ATTEND Family Medicine
DX: J34.89 Other specified disorders of nose and nasal sinuses (principal)
CPT/HCPCS: 70486

== ENCOUNTER → 2022-10-14 | Outpatient (CLI) | payer MEDICARE, OTHER ==
--- NOTE | 2022-10-14 08:35 | Diagnostic Imaging Report ---
INDICATION: Chronic sinusitis. TECHNIQUE: Multiple contiguous axial images were obtained through the sinuses without the use of intravenous contrast. Coronal and sagittal reformations were then performed. Auto Exposure Controls were utilized during the CT exam to meet ALARA standards for radiation dose reduction. COMPARISON made with prior sinus CT 06/23/2022. The frontal sinuses are clear. The ethmoid air cells show mild opacification on the left side posteriorly. This is improved compared to the prior study but not completely resolved. The sphenoid sinuses show mucosal thickening and fluid on both sides nearly filling the sinus. This shows minimal change compared to the previous study. The maxillary sinuses are clear. Ostiomeatal complexes appear patent. There is mild septal deviation. Orbital contents are unremarkable. IMPRESSION: Compared to the previous study of 06/23/2022, the bilateral sphenoid sinus disease appears minimally changed. There is improved aeration of the left ethmoid air cells posteriorly compared to the prior study. Remaining sinuses are clear. Dictated by: Dictated on workstation # [id number]
== END ==
LOC: RAD 07:46
PROVIDERS: ATTEND Otolaryngology Otolaryngology/Facial Plastic Surgery
DX: J32.9 Chronic sinusitis, unspecified (principal); R19.06 Epigastric swelling, mass or lump
CPT/HCPCS: 70486

== ENCOUNTER → 2022-10-14 | Outpatient (CLI) | payer MEDICARE, OTHER ==
--- NOTE | 2022-10-14 08:41 | Diagnostic Imaging Report ---
INDICATION: Epigastric pain TECHNIQUE: Multiple contiguous axial images were obtained through the abdomen without the use of intravenous contrast. Auto Exposure Controls were utilized during the CT exam to meet ALARA standards for radiation dose reduction. COMPARISON: There is no previous study for comparison. The visualized portions of the lung bases demonstrate cavitary lesions in the lung bases, including a cavitary lesion in the left base measuring about 2.8 cm. There are smaller lesions in the right lower lobe. Recommend CT chest for full evaluation of the lungs. There is no pleural fluid or free intraperitoneal air The liver and gallbladder appear normal. The spleen, adrenals, and pancreas appear normal. There is a small hiatal hernia. The kidneys bilaterally appear unremarkable. There is no retroperitoneal mass or adenopathy. There is atherosclerotic calcification of the aorta without evidence of aneurysm. IMPRESSION: No abdominal mass or abnormal fluid collection or focal inflammatory process in the abdomen. Visualized portion of the lung bases show multiple cavitary lesions, differential possibilities include metastatic disease or an infectious process. Recommend full chest CT to evaluate the entirety of the lung prieto. Dictated by: Dictated on workstation # [id number]
== END ==
LOC: RAD 07:48
PROVIDERS: ATTEND Family Medicine
DX: R91.1 Solitary pulmonary nodule (principal)
CPT/HCPCS: 74150

== ENCOUNTER → 2022-10-26 | Outpatient (CLI) | payer MEDICARE, OTHER ==
--- NOTE | 2022-10-26 10:09 | Diagnostic Imaging Report ---
PROCEDURE: CT chest without contrast. TECHNIQUE: Multiple contiguous axial images were obtained through the chest without the use of intravenous contrast. Auto Exposure Controls were utilized during the CT exam to meet ALARA standards for radiation dose reduction. INDICATION: Cavitary lesion of the lung bases. COMPARISON: 10/14/2022 and 01/15/2019 FINDINGS: No pathologically enlarged lymph nodes within the chest. Postsurgical changes of a CABG. Scattered vascular calcifications without aneurysmal dilatation of thoracic aorta. The heart is within normal limits in size. No significant pericardial effusion. Trace left pleural effusion. No significant right pleural effusion. The trachea is patent. No pneumothorax. Multiple thick-walled cavitary lesions are again identified within the bilateral lung bases. This includes a 4.7 cm cavitary lesion within the left lower lobe as well as a 2.6 cm lesion within the left lower lobe. Additional 2.1 cm lesion within the medial aspect of the right lower lobe. These appear not significantly changed since recent CT of the abdomen and pelvis. Calcified granuloma within the anterior right upper lobe. Some of this thick-walled cavitary changes were present on prior imaging in 2019 within the left lower lobe, however, many of these cavitary lesions appear new since that time. The minimally visualized upper abdomen is unremarkable. Scattered osseous degenerative changes without acute osseous abnormality. IMPRESSION: Thick-walled cavitary lesions within the bilateral lung bases as described above. Although some of these cavitary changes were present in 2019, the majority of the lesions appear new since that time, particularly within the right lung base. Differential considerations would include multifocal pneumonia, septic emboli, or even potentially metastatic disease. Recommend clinical correlation. If further evaluation is desired, then a CT-guided biopsy would be recommended. If biopsy is performed, consideration for biopsy of the new more discrete density within the medial right lower lobe. Trace left pleural effusion. Additional postsurgical and chronic findings as above. Dictated by: Dictated on workstation # [id number]
== END ==
LOC: RAD 07:50
PROVIDERS: ATTEND Family Medicine
DX: J32.9 Chronic sinusitis, unspecified (principal); R91.8 Other nonspecific abnormal finding of lung field
CPT/HCPCS: 71250

== ENCOUNTER 2022-11-10 07:39 | Outpatient (CLI) | payer MEDICARE, OTHER ==
[2022-11-10] VITALS (10 sets, daily range): BP systolic 126–153; BP diastolic 60–84
[~2022-11-10 07:39] MED LIST changes: +DILT240C74 PO; -DILT240C87 PO
[2022-11-10] MEDS ORDERED: NS IV 1000 ML 1,000 ML IV STA (08:10)
[2022-11-10] MEDS ORDERED: MIDAZOLAM 2 MG/2 ML (VERSED) VIAL IVP ONE (08:15)
[2022-11-10] MEDS ORDERED: LIDOCAINE 1% INJ 10 ML VIAL INJ ONE (08:15)
[2022-11-10] MEDS ORDERED: fentaNYL INJ 100 MCG/2 ML AMP IVP ONE (08:15)
[2022-11-10 08:51] LABS: HEMATOCRIT 31 % (35-52); MEAN CORPUSCULAR HEMOGLOBIN 27 pg (25-34); MEAN CORPUSCULAR HGB CONC 32 g/dL (32-36); MEAN CORPUSCULAR VOLUME 86 fL (80-99); MEAN PLATELET VOLUME 10.5 fL (9.0-12.2); PLATELET COUNT 234 10^3/uL (130-400); WHITE BLOOD COUNT 6.2 10^3/uL (4.3-11.0)
[2022-11-10] MEDS ORDERED: HYDROcodone/APAP 5 MG/325 MG (LORTAB) TAB PO PRN (10:30)
--- NOTE | 2022-11-10 10:55 | Diagnostic Imaging Report ---
INDICATION: Right lung mass. Patient presents for CT-guided lung biopsy. TECHNIQUE: All CT scans use one or more of the following dose optimizing techniques: automated exposure control, MA and/or KvP adjustment based on patient size and exam type or iterative reconstruction. FINDINGS: The patient was brought to the CT suite and placed on the table in the prone position. Axial imaging through the chest was performed to evaluate for an appropriate entry site. The study was performed utilizing conscious sedation with Radiology nursing and constant patient monitoring. The patient was given a total of 50 mg of fentanyl intravenously and 1 mg of Versed intravenously. The total procedure time was approximately 12 minutes. An 18-gauge coaxial Temno needle was advanced from a right paraspinal approach and placed with its tip along the inferior margin of the nodule in the paraspinous location in the right lower lobe. Multiple core biopsies were obtained. A blood patch was injected during needle removal. Followup imaging demonstrates a very small basilar pneumothorax. Hemostasis was obtained using manual compression. The patient tolerated the procedure well and left the Department in stable condition. IMPRESSION: CT-guided biopsy of the mass in the paraspinal location of the right lower lobe utilizing conscious sedation. Pathology results are currently pending. Dictated by: Dictated on workstation # [id number]
--- NOTE | 2022-11-10 12:12 | Diagnostic Imaging Report ---
INDICATION: Right lung biopsy. TIME OF EXAM: 11:31 AM Expiratory radiograph of the chest demonstrates a tiny right apical pneumothorax. No infiltrates are seen. There is no effusion. There are changes of median sternotomy. IMPRESSION: Tiny right apical pneumothorax, status post right lung biopsy. Dictated by: Dictated on workstation # [id number]
--- NOTE | 2022-11-10 15:38 | Pre-Op Note & Conscious Sedat ---
Pre-Operative Progress Note Date of Available H&P: Nov 10, 2022 Date H&P Reviewed: Nov 10, 2022 Time H&P Reviewed: 09:00 Pre-Op Diagnosis: lung mass Moderate Sedation PreProcedure Time 09:00 ASA Score 2 Airway Lungs Heart ASA score ASA 1: a normal healthy patient ASA 2: a patient with a mild systemic disease (mid diabetes, controlled hypertension, obesity ASA 3: a patient with a severe systemic disease that limits activity (angina, COPD, prior Myocardial infarction) ASA 4: a patient with an incapacitating disease that is a constant threat to life (CHF, renal failure) ASA 5: a moribund patient not expected to survive 24 hrs. (ruptured aneurysm) ASA 6: a declared brain- patient whose organs are being harvested. For emergent operations, add the letter E after the classification Mallampati Classification Grade 2 Sedation Plan Analgesia, Amnesia, Plan communicated to team members, Discussed options with patient/fam, Discussed risks with patient/fam The patient is an appropriate candidate to undergo the planned procedure, sedation, and anesthesia. The patient immediately re-assessed prior to indication. MIGUEL ANGEL GIRALDO MD Nov 10, 2022 15:37
== END 2022-11-10 12:35 | disposition home or self-care (01) ==
LOC: SDC 07:39
PROVIDERS: ATTEND Family Medicine
DX: J98.4 Other disorders of lung (principal); R91.8 Other nonspecific abnormal finding of lung field; Z98.890 Other specified postprocedural states
CPT/HCPCS: 36415; 71045; 77012; 85027; 85610; 85730; 88305; 99156

== ENCOUNTER → 2023-01-26 | Outpatient (CLI) | payer MEDICARE, OTHER | LOC: CARD 08:02 | PROVIDERS: ATTEND Internal Medicine Cardiovascular Disease | DX: I25.10 Atherosclerotic heart disease of native coronary artery without angina pectoris (principal); I11.9 Hypertensive heart disease without heart failure | CPT/HCPCS: 93306 ==